=== PATIENT | female | born 1970 | race Two or more races ===

== ENCOUNTER 2018-07-20 11:23 | Outpatient (CLI) | payer OTHER | END 2018-07-20 11:24 | disposition home or self-care (01) | LOC: SONOGRAMA 11:23 | DX: E04.1 Nontoxic single thyroid nodule (principal) ==

== ENCOUNTER 2019-03-23 06:36 | Day surgery (SDC) | payer OTHER | END 2019-03-23 10:10 | disposition home or self-care (01) | LOC: AMB-ENDOS 06:36 | DX: K64.2 Third degree hemorrhoids (principal) ==

== ENCOUNTER 2022-06-03 08:00 | Outpatient (CLI) | payer OTHER | END 2022-06-03 08:03 | disposition home or self-care (01) | LOC: SONOGRAMA 08:00 | PROVIDERS: ATTEND Pathology Anatomic Pathology & Clinical Pathology | DX: E04.1 Nontoxic single thyroid nodule (principal) ==